=== PATIENT | male | born 1935 ===

== ENCOUNTER → 2022-11-24 | Outpatient (CLI) | payer MEDICARE, OTHER ==
[~2022-11-24] MED LIST: ATEN50 PO; ERGO400 PO; FOLI1 PO; LOSA50 PO; SIMV10 PO
[2022-11-24 14:11] LABS: Microalb/Creat Ratio UR, Rand 26.26 mg/g (0.000-30.000); Microalbumin, Random Urine 32.3 mg/L (0.000-20.000)
== END | disposition home or self-care (01) ==
LOC: LAB SHORT 10:10 → LAB 10:10
PROVIDERS: Physician Assistant Medical
DX: E11.9 Type 2 diabetes mellitus without complications (principal)
CPT/HCPCS: 82043; 82570

== ENCOUNTER → 2024-09-26 | Outpatient (CLI) | payer MEDICARE, OTHER ==
[~2024-09-26] MED LIST changes: +METF500 PO
== END | disposition home or self-care (01) ==
LOC: LAB SHORT 13:42 → LAB 13:42
DX: R27.0 Ataxia, unspecified (principal); R41.0 Disorientation, unspecified
CPT/HCPCS: 87086

== ENCOUNTER 2025-06-02 16:10 | Inpatient (IN) | payer MEDICARE ==
[~2025-06-02] VITALS: Ht 165.1 cm; Wt 69.6 kg
[~2025-06-02 16:10] MED LIST changes: -AMOCLA875 PO; -ZOCOR20 MG PO
[2025-06-02] MEDS ORDERED: NS 500 ML IV SCH (16:20)
[2025-06-02] MEDS ORDERED: HYDROmorphone HCl/Pf 1MG SYR IV ONE ×2 (16:40→19:10)
[2025-06-02] MEDS ORDERED: ZOCOR20 MG PO (18:03)
[2025-06-02 18:24] LABS: Source, Urine Clean Catch
[2025-06-02 18:33] LABS: Bilirubin, Urine Neg (Neg); Color, Urine Yellow (P-Yellow); Glucose Qualitative, Urine 4+ (Neg); Ketones, Urine 3+ (Neg); Leukocyte Esterase, Urine 2+ (Neg); Protein, Urine 2+ (Neg); Specific Gravity, Urine 1.015 (1.003-1.022); Urobilinogen, Urine NORM (Normal)
[2025-06-02] MEDS ORDERED: CefTRIAXone Sodium 1,000 MG in NS 100 ML IV ONE (19:05)
[2025-06-02] MEDS ORDERED: Ondansetron HCl 2 MG / ML 2ML Vial IV PRN (20:25)
[2025-06-02] MEDS ORDERED: NS 1,000 ML IV SCH (20:25)
[2025-06-02] MEDS ORDERED: FentaNYL Citrate 50 MCG/ML 2 ML Injection IV PRN (20:25)
[2025-06-02] MEDS ORDERED: FLU VACC TS2025(65UP)/MF59C/PF 45 MCG/0.5 ML SYRINGE IM SCH (20:25)
[2025-06-02] MEDS ORDERED: Labetalol HCL 5 MG/ML 4ML Injection (Single Dose) IV PRN (20:25)
[2025-06-02] MEDS ORDERED: NS 1,000 ML IV ONE (21:00)
[2025-06-02] MEDS ORDERED: HydrALAZINE HCl 20 MG / ML 1ML Vial IV PRN (21:55)
[2025-06-02 23:01] VITALS: BP 120/67
--- NOTE | 2025-06-02 23:15 | NUR ---
REPORT RECEIVED FROM JANE ARREDONDO RN. PT ARRIVED TO THE MEDICAL FLOOR @2253 IN A GURNEY. PT INDEPENDENTLY TRANSFERRED TO THE HOSPITAL BED. FLOORING HELPERSADIQ ORDOÑEZ WILL COMPLETE THE INITIAL ADMISSION ASSESSMENT WITH THIS FLY FRAME TENDER. PT BROUGHT ALL HIS BELONINGS WITH HIM. BED ALARM FOR SAFETY. A/O X4 AT THIS TIME. BED AT THE LOWEST POSITION, CALL LIGHT W/I REACH. EDUCATED BALANCE STAFF STAKER LIGHT AND FALL PRECAUTIONS. NON-SLIP SOCKS ON.
[2025-06-03] MEDS ORDERED: Insulin Human Lispro 100 Units/ML 3ML Syringe SC SCH
--- NOTE | 2025-06-03 01:11 | NUR ---
@0105 ATTEMPTED TO INSERT NG TUBE (THIS ACCOUNTS RECEIVABLE SPECIALIST), PT REJECTING WHEN ADVANCING THE TUBE. WILL NOTIFY THE PROVIDER. PARTS ROOM ASSOCIATE NOTIFIED.
[2025-06-03 03:10] VITALS: BP 180/100
[2025-06-03 06:15] LABS: BASOPHILS ABSOLUTE AUTO 0.03 K/mm3 (0.00-0.23); BASOPHILS PERCENT AUTO 0 % (0-2); EOSINOPHILS ABSOLUTE AUTO 0.02 K/mm3 (0.00-0.68); EOSINOPHILS PERCENT AUTO 0 % (0-6); Hematocrit 42.0 % (37.0-53.0); Hemoglobin 14.6 g/dL (13.5-17.5); IMMATURE GRAN ABSOLUTE AUTO 0.04 K/mm3 (0.00-0.10); IMMATURE GRAN PERCENT AUTO 0 % (0-1); LYMPHOCYTES ABSOLUTE AUTO 0.50 K/mm3 (0.84-5.20); LYMPHOCYTES PERCENT AUTO 3 % (21-46); MONOCYTES ABSOLUTE AUTO 1.70 K/mm3 (0.16-1.47); MONOCYTES PERCENT AUTO 10 % (4-13); Mean Corpuscular HGB Conc 34.8 g/dL (31.5-36.5); Mean Corpuscular Volume 96 fL (80-100); NEUTROPHILS ABSOLUTE AUTO 14.85 K/mm3 (1.96-9.15); NEUTROPHILS PERCENT AUTO 87 % (41-73); NRBC ABSOLUTE 0.00 K/mm3 (0.00-0.02); NRBC Auto 0.0 /100 WBC (0.0-0.2); Platelet Count 220 K/mm3 (150-400); RDW Coefficient Variation 12.3 % (11.7-14.2); RDW Standard Deviation 42.5 fL (35.1-46.3)
[2025-06-03 06:18] LABS: Prothrombin Time Results 11.8 Sec (9.7-11.5)
[2025-06-03 06:23] LABS: Anion Gap 8.0 mmol/L (3-11); Blood Urea Nitrogen 22.0 mg/dL (8-24); CO2, Blood 28.0 mmol/L (21-32); Calcium, Blood 10.0 mg/dL (8.5-10.1); Chloride, Blood 104.0 mmol/L (98-108); Creatinine, Blood 1.08 mg/dL (0.60-1.20); Glucose, Blood 194.0 mg/dL (70-99); Magnesium, Blood 1.9 mg/dL (1.6-2.4); Potassium, Blood 4.0 mmol/L (3.5-5.5); Sodium, Blood 136.0 mmol/L (136-145)
[2025-06-03 08:08] VITALS: BP 121/68
--- NOTE | 2025-06-03 11:38 | NUR ---
RN NOTE MR COX IS ABLE TO ANSWER ORIENTATION QUESTIONS FOR HIS NAME, WHERE HE IS, , NOT YEAR, AND THAT HE IS HERE FOR "STOMACH PROBLEMS". THIS MORNING HE GOT OUT OF BED WITHOUT USING CALL LIGHT TO USE THE BATHROOM, CONFUSED HE WAS HEADING FOR THE HALLWAYS RATHER THAN BACK TO BED BUT WAS ABLE TO BE REDIRECTED. HE REPEATS PHRASES "I'M GRATEFUL FOR MY CARE" MULTIPLE TIMES. HE DENIES ANY ABDOMINAL PAIN OR NAUSEA THIS MORNING. AT BEDSIDE. DR BREEN DID BEDSIDE ROUNDS AND VERBALISED THAT IT IS OK TO LEAVE NGT OUT AT THIS TIME. PER RN REPORT MR COX DID NOT TOLERATE PLACEMENT OF NGT LAST SHIFT. IV RESTARTED AND MAINTANAINCE IVF INFUSING. NPO. BED LOW, CALL LIGHT IN REACH, BED ALARM ON.
--- NOTE | 2025-06-03 17:27 | NUR ---
SHIFT ASSESSMENT MR COX IS ORIENTATED TO SELF, PLACE AND MONTH BUT FORGETFUL/WITH CONFUSION. HE FORGETS THAT HE IS ATTACHED TO IVF AND VERY QUICKLY GETS OUT OF BED, PULLING ON THE IV/TUBING. BED ALARM GOES OFF. HE HAS BEEN SLEEPING A LOT THIS AFTERNOON. HIS WAS HERE FOR MUCH OF THE AFTERNOON. HE HAS DENIED ABDOMINAL PAIN OR NAUSEA THIS SHIFT.
[2025-06-03 20:04] VITALS: BP 132/74
[2025-06-03] MEDS ORDERED: CefTRIAXone Sodium 1,000 MG in NS 100 ML IV SCH (21:00)
[2025-06-04 04:14] VITALS: BP 161/89
--- NOTE | 2025-06-04 05:16 | NUR ---
SHIFT SUMMARY PT DENIES ABDOMINAL PAIN OR NAUSEA THROUGH THE SHIFT. TOLERATING CLEAR LIQUIDS. VOIDING PER URINAL OR BATHROOM WITHOUT DISCOMFORT- STRAINED URINE WITH NO STONES FOUND. PT IMPULSIVE OOB WHEN HE NEEDS TO VOID. PT AMBULATED IN OTT WITH 1 ASSIST USING IV POLE FOR BALANCE. IVF INFUSING PER ORDER. SLEPT INTERMITTENTLY DURING THE NIGHT. BED ALARM ON, CALL LIGHT WITHIN REACH.
[2025-06-04 07:30] VITALS: BP 158/89
[2025-06-04 08:42] LABS: BASOPHILS ABSOLUTE AUTO 0.03 K/mm3 (0.00-0.23); BASOPHILS PERCENT AUTO 0 % (0-2); EOSINOPHILS ABSOLUTE AUTO 0.24 K/mm3 (0.00-0.68); EOSINOPHILS PERCENT AUTO 2 % (0-6); Hematocrit 42.1 % (37.0-53.0); Hemoglobin 14.1 g/dL (13.5-17.5); IMMATURE GRAN ABSOLUTE AUTO 0.03 K/mm3 (0.00-0.10); IMMATURE GRAN PERCENT AUTO 0 % (0-1); LYMPHOCYTES ABSOLUTE AUTO 1.72 K/mm3 (0.84-5.20); LYMPHOCYTES PERCENT AUTO 15 % (21-46); MONOCYTES ABSOLUTE AUTO 0.89 K/mm3 (0.16-1.47); MONOCYTES PERCENT AUTO 8 % (4-13); Mean Corpuscular HGB Conc 33.5 g/dL (31.5-36.5); Mean Corpuscular Volume 98 fL (80-100); NEUTROPHILS ABSOLUTE AUTO 8.79 K/mm3 (1.96-9.15); NEUTROPHILS PERCENT AUTO 75 % (41-73); NRBC ABSOLUTE 0.00 K/mm3 (0.00-0.02); NRBC Auto 0.0 /100 WBC (0.0-0.2); Platelet Count 203 K/mm3 (150-400); RDW Coefficient Variation 12.4 % (11.7-14.2); RDW Standard Deviation 44.9 fL (35.1-46.3)
[2025-06-04 10:04] LABS: Alanine Aminotransfer (ALT/SGP 31.0 U/L (12-78); Albumin, Blood 3.3 g/dL (3.4-5.0); Albumin/Globulin Ratio 1.3 (0.8-1.8); Aspartate Aminotrans (AST/SGOT 44.0 U/L (12-37); Bilirubin, Total 0.6 mg/dL (0.1-1.0); Blood Urea Nitrogen 18.0 mg/dL (8-24); CO2, Blood 25.0 mmol/L (21-32); Calcium, Blood 9.4 mg/dL (8.5-10.1); Creatinine, Blood 0.92 mg/dL (0.60-1.20); Globulin, Blood 2.5 g/dL (2.2-4.0); Glucose, Blood 111.0 mg/dL (70-99); Total Protein, Blood 5.8 g/dL (6.4-8.2)
[2025-06-04 10:55] LABS: Anion Gap 9.0 mmol/L (3-11); Chloride, Blood 106.0 mmol/L (98-108); Potassium, Blood 3.7 mmol/L (3.5-5.5); Sodium, Blood 136.0 mmol/L (136-145)
--- NOTE | 2025-06-04 11:03 | NUR ---
RN NOTE MR COX ATE SOME FLUIDS FROM HIS CLEAR LIQUID BREAKFAST TRAY THIS MORNING, HE HAD BROTH AND JELLO, DRANK SOME FLUIDS, NO NAUSEA OR ABDOMINAL PAIN. ADVANCED TO FULL LIQUID DIET FOR LUNCH. HE AMBULATED IN THE HALLS WITH S/B ASSISANCE WITH HIS CANE. UP TO THE BATHROOM WITH STAND-BY ASSISTANCE. SMALL STOOL THIS MORNING. IVF DISCONTINUED THIS MORNING. BED ALARM ON. AT BEDSIDE.
[2025-06-04] MEDS ORDERED: Insulin Human Lispro 100 Units/ML 3ML Syringe SC SCH (11:30)
[2025-06-04 12:45] VITALS: BP 154/89
[2025-06-04 14:45] VITALS: BP 123/84
[2025-06-04] MEDS ORDERED: MetFORMIN HCl 500 mg PO SCH (17:00)
--- NOTE | 2025-06-04 17:59 | NUR ---
SHIFT SUMMARY MR COX TOLERATED CLEAR LIQUID BREAKFAST AND THICK LIQUID LUNCH WITHOUT NAUSEA OR PAIN. HE HAS CONSISTANT CARB SUPPER ORDERED. WAS AT THE BEDSIDE FOR MUCH OF THE SHIFT. MR COX FORGETS TO USE THE CALL LIGHT, CHAIR AND BED ALARMS USED. HE HAS AMBULATED IN THE HALLS AND TO THE BATHROOM WITH HIS CANE.
[2025-06-04 20:20] VITALS: BP 159/85
[2025-06-04] MEDS ORDERED: Lidocaine 2% Jelly Uro-Jet UR ONE (23:55)
--- NOTE | 2025-06-05 00:01 | NUR ---
PT WITH URGENCY AND FREQUENCY OF URINE. POST VOID BLADDER SCAN ONLY SHOWED 184ML. MANAGER GALLERY PROVIDER NOTIFIED AND ORDER FOR STRAIGHT CATH X1 USING UROJET, AND URINE FOR UA AND CULTURE IF INDICATED.
[2025-06-05 00:51] LABS: Source, Urine Clean Catch
[2025-06-05 01:14] LABS: Bilirubin, Urine Neg (Neg); Glucose Qualitative, Urine Neg (Neg); Ketones, Urine Neg (Neg); Leukocyte Esterase, Urine Neg (Neg); Protein, Urine Neg (Neg); Specific Gravity, Urine 1.010 (1.003-1.022); Urobilinogen, Urine NORM (Normal)
[2025-06-05 01:33] LABS: Color, Urine Pale Yellow (P-Yellow)
[2025-06-05 01:34] LABS: White Blood Cells, Urine 0-2 /hpf (0-5)
[2025-06-05 03:36] VITALS: BP 181/97
[2025-06-05 04:37] VITALS: BP 158/89
--- NOTE | 2025-06-05 06:45 | NUR ---
SHIFT SUMMARY PT WITH URINARY URGENCY AND INCREASING FREQUENCY TO APPRX EVERY 20 MINUTES DURING THE NIGHT. STRAIGHT CATH'D AFTER BLADDER SCAN AND SAMPLE SENT TO LAB PER ORDER. PT'S FREQUENCY DECREASED TO APPROX EVERY 45 MINUTES AFTER STRAIGHT CATH. PT'S CONFUSION AND RESTLESSNESS INCREASED DURING THE NIGHT. DIFFICULT TO REORIENT PT. AT 0545 PT STATED HE FELT LIKE "I'M HAVING A NERVOUS BREAKDOWN OR I'M GOING CRAZY". ASSISTED PT TO CALL , THEN SPOKE WITH BILL DISTRIBUTOR PROVIDER- ZYPREXA ORDERED AND GIVEN. PT'S NOW AT BEDSIDE. PT APPEARS MORE CALM, BUT REMAINS DISORIENTED AND CONFUSED. PT HAS TOLERATED REGULAR DIET. DENIES ANY PAIN OR NAUSEA. BED ALARM ON, CALL LIGHT WITHIN REACH.
[2025-06-05 07:20] VITALS: BP 157/84
[2025-06-05 09:00] LABS: BASOPHILS ABSOLUTE AUTO 0.04 K/mm3 (0.00-0.23); BASOPHILS PERCENT AUTO 0 % (0-2); EOSINOPHILS ABSOLUTE AUTO 0.10 K/mm3 (0.00-0.68); EOSINOPHILS PERCENT AUTO 1 % (0-6); Hematocrit 41.4 % (37.0-53.0); Hemoglobin 14.5 g/dL (13.5-17.5); IMMATURE GRAN ABSOLUTE AUTO 0.06 K/mm3 (0.00-0.10); IMMATURE GRAN PERCENT AUTO 1 % (0-1); LYMPHOCYTES ABSOLUTE AUTO 1.26 K/mm3 (0.84-5.20); LYMPHOCYTES PERCENT AUTO 10 % (21-46); MONOCYTES ABSOLUTE AUTO 0.90 K/mm3 (0.16-1.47); MONOCYTES PERCENT AUTO 7 % (4-13); Mean Corpuscular HGB Conc 35.0 g/dL (31.5-36.5); Mean Corpuscular Volume 94 fL (80-100); NEUTROPHILS ABSOLUTE AUTO 10.53 K/mm3 (1.96-9.15); NEUTROPHILS PERCENT AUTO 82 % (41-73); NRBC ABSOLUTE 0.00 K/mm3 (0.00-0.02); NRBC Auto 0.0 /100 WBC (0.0-0.2); Platelet Count 213 K/mm3 (150-400); RDW Coefficient Variation 12.0 % (11.7-14.2); RDW Standard Deviation 42.0 fL (35.1-46.3)
[2025-06-05] MEDS ORDERED: Folic Acid 1 MG TAB PO SCH (09:00)
[2025-06-05 09:32] LABS: Alanine Aminotransfer (ALT/SGP 38.0 U/L (12-78); Albumin, Blood 3.4 g/dL (3.4-5.0); Albumin/Globulin Ratio 1.3 (0.8-1.8); Anion Gap 7.0 mmol/L (3-11); Aspartate Aminotrans (AST/SGOT 44.0 U/L (12-37); Bilirubin, Total 0.5 mg/dL (0.1-1.0); Blood Urea Nitrogen 14.0 mg/dL (8-24); CO2, Blood 27.0 mmol/L (21-32); Calcium, Blood 9.7 mg/dL (8.5-10.1); Chloride, Blood 107.0 mmol/L (98-108); Creatinine, Blood 0.87 mg/dL (0.60-1.20); Globulin, Blood 2.6 g/dL (2.2-4.0); Glucose, Blood 196.0 mg/dL (70-99); Potassium, Blood 3.5 mmol/L (3.5-5.5); Sodium, Blood 137.0 mmol/L (136-145); Total Protein, Blood 6.0 g/dL (6.4-8.2)
[2025-06-05] MEDS ORDERED: AMOCLA875 PO (14:20)
--- NOTE | 2025-06-05 14:46 | NUR ---
DISCHARGE PT DISCHARGED HOME WITH . ALL BELONGINGS WITH PT, EDUCATION PROVIDED, ALL QUESTIONS ANSWERED.
== END 2025-06-05 14:59 | disposition home or self-care (01) | DRG 389 ==
LOC: ER 16:10 → ERHOLD 20:19 → MEDS 20:19 → ENPENDDIS 06-05 14:23 → MEDS 06-05 14:59
PROVIDERS: Emergency Medicine; Family Medicine; Internal Medicine; Nurse Practitioner Acute Care; ADMIT Internal Medicine
DX: K56.609 Unspecified intestinal obstruction, unspecified as to partial versus complete obstruction (principal); N13.6 Pyonephrosis; F03.90 Unspecified dementia, unspecified severity, without behavioral disturbance, psychotic disturbance, mood disturbance, and anxiety; I10 Essential (primary) hypertension; E78.5 Hyperlipidemia, unspecified; I25.10 Atherosclerotic heart disease of native coronary artery without angina pectoris; E11.9 Type 2 diabetes mellitus without complications; E89.2 Postprocedural hypoparathyroidism; I25.2 Old myocardial infarction; Z90.49 Acquired absence of other specified parts of digestive tract; Z95.5 Presence of coronary angioplasty implant and graft; Z98.890 Other specified postprocedural states; Z79.84 Long term (current) use of oral hypoglycemic drugs; Z79.899 Other long term (current) drug therapy
CPT/HCPCS: 36415; 74177; 80048; 80053; 81001; 82947; 83605; 83735; 85025; 85610; 87040; 87086; 96374-59; 96376; 99285-25; A9270; J0360; J0696; J1171; J7030; Q9967

== ENCOUNTER → 2025-06-02 | Outpatient (CLI) | payer MEDICARE ==
[~2025-06-02] MED LIST changes: +AMOCLA875 PO; +ZOCOR20 MG PO
[2025-06-02 15:32] LABS: BASOPHILS ABSOLUTE AUTO 0.05 K/mm3 (0.00-0.23); BASOPHILS PERCENT AUTO 0 % (0-2); EOSINOPHILS ABSOLUTE AUTO 0.07 K/mm3 (0.00-0.68); EOSINOPHILS PERCENT AUTO 0 % (0-6); Hematocrit 44.5 % (37.0-53.0); Hemoglobin 16.0 g/dL (13.5-17.5); IMMATURE GRAN ABSOLUTE AUTO 0.09 K/mm3 (0.00-0.10); IMMATURE GRAN PERCENT AUTO 1 % (0-1); LYMPHOCYTES ABSOLUTE AUTO 2.08 K/mm3 (0.84-5.20); LYMPHOCYTES PERCENT AUTO 13 % (21-46); MONOCYTES ABSOLUTE AUTO 1.00 K/mm3 (0.16-1.47); MONOCYTES PERCENT AUTO 6 % (4-13); Mean Corpuscular HGB Conc 36.0 g/dL (31.5-36.5); Mean Corpuscular Volume 94 fL (80-100); NEUTROPHILS ABSOLUTE AUTO 13.07 K/mm3 (1.96-9.15); NEUTROPHILS PERCENT AUTO 80 % (41-73); NRBC ABSOLUTE 0.00 K/mm3 (0.00-0.02); NRBC Auto 0.0 /100 WBC (0.0-0.2); Platelet Count 279 K/mm3 (150-400); RDW Coefficient Variation 11.9 % (11.7-14.2); RDW Standard Deviation 41.3 fL (35.1-46.3)
[2025-06-02 15:45] LABS: Alanine Aminotransfer (ALT/SGP 28.0 U/L (12-78); Albumin, Blood 3.9 g/dL (3.4-5.0); Albumin/Globulin Ratio 1.3 (0.8-1.8); Anion Gap 18.0 mmol/L (3-11); Aspartate Aminotrans (AST/SGOT 25.0 U/L (12-37); Bilirubin, Total 1.1 mg/dL (0.1-1.0); Blood Urea Nitrogen 26.0 mg/dL (8-24); CO2, Blood 23.0 mmol/L (21-32); Calcium, Blood 11.8 mg/dL (8.5-10.1); Chloride, Blood 99.0 mmol/L (98-108); Creatinine, Blood 1.35 mg/dL (0.60-1.20); Globulin, Blood 3.0 g/dL (2.2-4.0); Glucose, Blood 237.0 mg/dL (70-99); Potassium, Blood 4.1 mmol/L (3.5-5.5); Sodium, Blood 136.0 mmol/L (136-145); Total Protein, Blood 6.9 g/dL (6.4-8.2)
== END | disposition home or self-care (01) ==
LOC: LAB 15:27 → LAB SHORT 15:27
PROVIDERS: Chiropractor
DX: R10.9 Unspecified abdominal pain (principal)
CPT/HCPCS: 80053; 83690; 84484; 85025